=== PATIENT | female | born 1935 | race Caucasian/White ===

== ENCOUNTER 2021-09-05 13:22 | Emergency (ER) | payer OTHER ==
[~2021-09-05] VITALS: Ht 162.6 cm; Wt 70.3 kg
--- NOTE | ~2021-09-05 | EKG ---
[place] [address] [facility] [place] [address] ELECTROCARDIOGRAM REPORT Name: SALIMAKELSY Room #: ALYSSA Lowe#: [id number] Admission: 09/05/21 Attend Phys: Discharge: 09/05/21 Date of : 39 Report #: [id number] [facility] ED Test Date: 2021-09-05 Test Time: 13:38:37 Pat Name: KELSY BORREGO Department: Room: Gender: F [employer] Job [employer]: ANDRIY : 1935 Requested By: Timmy Romo Order Number: [id number] MD: Measurements Intervals [place] Rate: 87 P: 66 MN: 170 QRS: 24 QRSD: 103 T: 42 QT: 361 QTc: 435 Interpretive Statements Sinus rhythm Paired ventricular premature complexes Compared to ECG 09/05/2021 10:40:11 Ventricular premature complex(es) now present Sinus bradycardia no longer present [email or web address] By: [id number] Epiphany EpiphanyMD /EPI
[~2021-09-05 13:22] MED LIST: LISINOPRIL10 MG PO; NAPROSYN250 MG PO; NORCO 5-325 TA1 EACH PO; TRAVATAN Z5 ML
[2021-09-05 14:08] LABS: ABSOLUTE NEUTROPHILS 4.2 thou/uL (1.4-8.2); BASOPHILS 1.2 % (0.0-2.0); HEMATOCRIT 35.7 % (37.0-47.0); HEMOGLOBIN 12.1 gm/dL (12.0-15.0); LYMPHOCYTES 25.8 % (24.0-44.0); MCH 30.8 pg (26.0-34.0); MCHC 33.9 g/dL (28.0-37.0); MCV 90.7 fL (80.0-100.0); MONOCYTES 8.1 % (1.0-8.0); PLATELET COUNT 244 thou/uL (150-400); POLYS 58.9 % (36.0-66.0); RBC 3.94 mil/uL (4.20-5.00); RDW 14.3 % (10.5-14.5); WBC 7.2 thou/uL (4.0-11.0)
[2021-09-05 14:18] LABS: CALCIUM 9.7 mg/dL (8.5-10.1); CREATININE 1.3 mg/dL (0.6-1.0); POTASSIUM 4.4 mmol/L (3.5-5.1)
[2021-09-05 15:28] VITALS: BP 145/68
--- NOTE | 2021-09-07 08:29 | EKG ---
[address] [address] ELECTROCARDIOGRAM REPORT Name: SALIMAKELSY Room #: ALYSSA Lowe#: [id number] Admission: 09/05/21 Attend Phys: Discharge: 09/05/21 Date of : 39 Report #: [id number] [facility] ED Test Date: 2021-09-05 Test Time: 13:38:37 Pat Name: KELSY BORREGO Department: Room: Gender: F Merchandise Buyer: ANDRIY : 1935 Requested By: Timmy Romo Order Number: [id number] MD: Mariano Duvall Measurements Intervals [place] Rate: 87 P: 66 [place]: 170 QRS: 24 QRSD: 103 T: 42 QT: 361 QTc: 435 Interpretive Statements Sinus rhythm Paired ventricular premature complexes No previous ECG available for comparison Electronically Signed On 09-07-2021 8:29:27 [employer] by Mariano Duvall [email or web address] <ELECTRONICALLY SIGNED> By: Mariano Duvall MD 09/07/21 0829 1338 1338 Mariano Duvall MD /EPI
== END 2021-09-05 15:29 | disposition home or self-care (01) ==
LOC: ER 13:22
PROVIDERS: Emergency Medicine
DX: R55 Syncope and collapse (principal); I10 Essential (primary) hypertension; Z88.2 Allergy status to sulfonamides; Z79.899 Other long term (current) drug therapy